=== PATIENT | male | born 1975 | race Caucasian/White ===

== ENCOUNTER 2020-04-12 23:21 | Emergency (ER) | payer SELFPAY ==
[~2020-04-12] VITALS: Ht 180.3 cm; Wt 68.2 kg
[2020-04-12 23:29] VITALS: Ht 180.3 cm; Wt 68.2 kg
[2020-04-12 23:55] LABS: HEMATOCRIT 42.2 % (42.0-54.0); HEMOGLOBIN 14.1 g/dL (13.5-17.5); LYMPHOCYTES 40.4 % (15-50); MCHC 33.4 g/dL (31.0-37.0); MCV 86.8 fL (80.0-100.0); MEAN PLATELET VOLUME 8.8 fL (7.4-10.4); NEUTROPHILS 48.9 % (40-80); RBC 4.86 10x6/uL (4.20-6.10); RDW 13.7 % (11.5-14.5); WBC 9.1 10x3/uL (4.8-10.8)
[2020-04-13 00:02] LABS: PLATELET COUNT 257 10x3/uL (130-400)
[2020-04-13 00:18] LABS: ANION GAP 8.4 mmol/L (8-16); CALCIUM 8.7 mg/dL (8.5-10.1); CARBON DIOXIDE 31.8 mmol/L (21.0-32.0); CREATININE - SERUM 1.2 mg/dL (0.6-1.3); POTASSIUM - SERUM 3.2 mmol/L (3.5-5.1)
[2020-04-13 00:23] LABS: ALBUMIN 3.9 g/dL (3.4-5.0); BILIRUBIN - TOTAL 0.23 mg/dL (0.2-1.3); MAGNESIUM - SERUM 1.9 mg/dL (1.8-2.4); PROTEIN - SERUM 7.1 g/dL (6.4-8.2)
[2020-04-13 02:16] VITALS: BP 144/89
== END 2020-04-13 02:16 | disposition home or self-care (01) ==
LOC: D.ER 23:21
PROVIDERS: Emergency Medicine
DX: R56.9 Unspecified convulsions (principal)